=== PATIENT | female | born 1980 | race Caucasian/White ===

== ENCOUNTER 2024-10-13 05:44 | Inpatient (IN) | payer MEDICARE, OTHER ==
[~2024-10-13] VITALS: Ht 167.6 cm; Wt 78.2 kg
[2024-10-13] VITALS (8 sets, daily range): BP systolic 100–105; BP diastolic 44–65; PULSE 61–83; RESP 16–26; TEMP 97.7–98.1; O2SAT 94–100
[2024-10-13 06:09] LABS: SITE, BLOOD GAS LFT RADIAL
[2024-10-13 06:10] LABS: ABG BASE EXCESS -2.2 mmol/L (-2.0-3.0); ABG CARBOXYHEMOGLOBIN 0.4 % (0.5-1.5); ABG METHEMOGLOBIN 0.7 % (0.0-1.5); ABG OXYGEN CONTENT 18.8 mL/dL (15.0-23.0); ABG OXYHEMOGLOBIN 98.6 % (94.0-98.0); ABG PCO2 36 mmHg (32.0-45.0); ABG TOTAL HEMOGLOBIN 12.9 G/dL (12.0-16.0); ALLEN TEST, BLOOD GAS Positive; SOURCE, BLOOD GAS ARTERIAL
[2024-10-13 06:11] LABS: ABG OXYGEN SATURATION 99.7 % (94.0-98.0); INSPIRATORY TIME, BG 0.9 SEC; O2 DEVICE,BLOOD GAS BIPAP (ROOM AIR); SPONTANEOUS VT, BG 954 ml; VENT MODE, BG NIPPV (ROOM AIR)
[2024-10-13 06:19] LABS: COVID AG,FIA SOURCE NASAL SWAB
[2024-10-13 06:37] LABS: INFLUENZA TYPE A NEGATIVE FOR TYPE A (NEGATIVE); INFLUENZA TYPE B NEGATIVE FOR TYPE B (NEGATIVE); SARS-COV2 (COVID) ANTIGEN,FIA Negative (Negative)
[2024-10-13 06:57] LABS: BASOPHILS % (AUTO) 2.1 % (0.0-2.0); EOSINOPHILS % (AUTO) 5.7 % (1.0-6.0); HEMATOCRIT 38.1 % (36-46); LYMPHOCYTES # (AUTO) 2.3 K/uL (1.0-4.8); LYMPHOCYTES % (AUTO) 30.7 % (22.0-44.0); MEAN CORPUSCULAR HEMOGLOBIN 26.6 pg (26.0-34.0); MEAN CORPUSCULAR HGB CONC 31.5 G/dL (31.0-37.0); MEAN CORPUSCULAR VOLUME 84 fL (80-100); MONOCYTES # (AUTO) 0.8 K/uL (0.1-1.0); MONOCYTES % (AUTO) 10.6 % (2.0-9.0); NEUTROPHILS # (AUTO) 3.7 K/uL (1.8-7.7); NEUTROPHILS % (AUTO) 50.9 % (40.0-70.0); PLATELET COUNT (AUTO) 297 K/uL (150-450); RED BLOOD CELL COUNT(AUTO) 4.51 MIL/uL (4.00-5.20); RED CELL DISTRIBUTION WIDTH 17.8 % (11.5-14.5); WHITE BLOOD COUNT (AUTO) 7.3 K/uL (4.5-11.0)
[2024-10-13 07:01] LABS: PROTHROMBIN TIME 9.9 SEC (9.4-11.6)
[2024-10-13] MEDS: LORazepam 2 MG/ML VIAL IVP ONE (07:56)
[2024-10-13 07:57] LABS: ANION GAP 11 mmol/L (8-16); CALCIUM, TOTAL 8.3 mg/dL (8.8-10.5); CARBON DIOXIDE 25 mmol/L (22-29); CHLORIDE 104 mmol/L (98-107); CREATININE 1.33 mg/dL (0.60-1.30); GLOMERULAR FILTR. RATE CALC 43 mL/min (>60); GLUCOSE,RANDOM 54 mg/dL (70-110); POTASSIUM 5.4 mmol/L (3.5-5.1); SODIUM SERUM 140 mmol/L (136-145); UREA NITROGEN, BLOOD 31 mg/dL (7-18)
[2024-10-13 08:02] LABS: ALANINE AMINOTRANSFERASE 44 U/L (12-78); ALBUMIN 3.2 g/dL (3.4-5.0); ALKALINE PHOSPHATASE 95 U/L (46-116); ASPARTATE AMINOTRANSFERASE 31 U/L (15-37); BILIRUBIN,TOTAL 0.3 mg/dL (0.1-1.0); CREATINE KINASE, TOTAL ONLY 62 U/L (26-192); TROPONIN I-HIGH SENSITIVITY 22 ng/L (<51)
[2024-10-13] MEDS: FUROSEMIDE 40 MG/4 ML VIAL IVP ONE (08:15)
[2024-10-13] MEDS: DEXTROSE 50%-WATER 25 GM/50 ML SYRINGE IVP ONE (08:15)
[2024-10-13] MEDS ORDERED: ONDANSETRON HCL 4 MG/2 ML VIAL IVP PRN (09:45)
[2024-10-13] MEDS ORDERED: ALBUTEROL SULFATE 2.5 MG/0.5 ML NEB SOLUTION NEB PRN (09:45)
[2024-10-13 11:44] LABS: APPEARANCE,URINE CLEAR (CLEAR); BILIRUBIN,URINE NEGATIVE (NEGATIVE); COLOR,URINE COLORLESS (YELLOW); GLUCOSE, URINE (UA) 300-500 mg/dL (NEGATIVE); KETONES,URINE NEGATIVE (NEGATIVE); LEUKOCYTE ESTERASE ,URINE NEGATIVE (NEGATIVE); NITRATE,URINE NEGATIVE (NEGATIVE); OCCULT BLOOD,URINE NEGATIVE (NEGATIVE); PH,URINE 6.5 (5.0-8.0); PROTEIN,URINE NEGATIVE (NEGATIVE); SPECIFIC GRAVITIY, URINE 1.006 (1.003-1.030); UROBILINOGEN,URINE <=1.0 mg/dL (<=1.0)
[2024-10-13 11:48] LABS: PH,URINE DRUG SCREEN 6.5 (5.0-8.0)
[2024-10-13 11:57] LABS: BACTERIA,URINE None Seen /HPF (None Seen); RBC,URINE None Seen /HPF (0-2); WBC,URINE None Seen /HPF (0-5)
[2024-10-13 11:58] LABS: ALCOHOL, URINE DRUG SCREEN NEGATIVE (NEGATIVE); AMPHET/METH SCREEN,URINE NEGATIVE (NEGATIVE); BARBITURATE SCREEN, URINE NEGATIVE (NEGATIVE); BENZODIAZEPINES SCREEN,URINE NEGATIVE (NEGATIVE); CANNABINOID SCREEN,URINE NEGATIVE (NEGATIVE); COCAINE SCREEN,URINE NEGATIVE (NEGATIVE); METHADONE SCREEN, URINE NEGATIVE (NEGATIVE); OPIATE SCREEN,URINE NEGATIVE (NEGATIVE); PHENCYCLIDINE SCREEN,URINE NEGATIVE (NEGATIVE)
[2024-10-13] MEDS ORDERED: INSULIN LISPRO 100 UNITS/ML SQ PRN (12:45)
[2024-10-13] MEDS: HEPARIN SODIUM,PORCINE 5,000 UNITS/ML VIAL SQ SCH (16:05)
[2024-10-13 16:56] LABS: GLUCOMETER DEV NAME(LOC) 5S.2D; GLUCOSE,POINT OF CARE 45 MG/DL (70-110)
[2024-10-13] MEDS: DEXTROSE 50%-WATER 25 GM/50 ML SYRINGE IVP PRN (17:13)
[2024-10-13 17:20] LABS: GLUCOMETER DEV NAME(LOC) 5S.2D; GLUCOSE,POINT OF CARE 68 MG/DL (70-110)
[2024-10-13 17:51] LABS: GLUCOMETER DEV NAME(LOC) 5S.2D; GLUCOSE,POINT OF CARE 91 MG/DL (70-110)
[2024-10-13] MEDS: DOCUSATE SODIUM 100 MG CAPSULE PO SCH (20:24)
[2024-10-13] MEDS: ACETAMINOPHEN 325 MG TABLET PO PRN (20:25)
[2024-10-13] MEDS: GABAPENTIN 300 MG CAPSULE PO ONE (22:12)
[2024-10-13] MEDS: IBUPROFEN 400 MG TABLET PO PRN (22:12)
[2024-10-13 22:30] LABS: GLUCOMETER DEV NAME(LOC) 5S.2D; GLUCOSE,POINT OF CARE 88 MG/DL (70-110)
[2024-10-14 04:45] VITALS: BP 101/62; PULSE 71; RESP 18; TEMP 97.8; O2SAT 98
[2024-10-14 05:31] LABS: GLUCOMETER DEV NAME(LOC) 5S.2D; GLUCOSE,POINT OF CARE 96 MG/DL (70-110)
[2024-10-14 07:01] LABS: CALCIUM, TOTAL 8.6 mg/dL (8.8-10.5); CREATININE 1.3 mg/dL (0.60-1.30)
[2024-10-14 07:07] LABS: BASOPHILS % (AUTO) 0.8 % (0.0-2.0); EOSINOPHILS % (AUTO) 7.8 % (1.0-6.0); HEMATOCRIT 36.2 % (36-46); HEMOGLOBIN 11.5 g/dL (12.0-16.0); LYMPHOCYTES % (AUTO) 32.4 % (22.0-44.0); MEAN CORPUSCULAR HEMOGLOBIN 26.4 pg (26.0-34.0); MEAN CORPUSCULAR HGB CONC 31.9 G/dL (31.0-37.0); MEAN CORPUSCULAR VOLUME 83 fL (80-100); MONOCYTES # (AUTO) 0.8 K/uL (0.1-1.0); MONOCYTES % (AUTO) 12.6 % (2.0-9.0); NEUTROPHILS # (AUTO) 2.8 K/uL (1.8-7.7); NEUTROPHILS % (AUTO) 46.4 % (40.0-70.0); PLATELET COUNT (AUTO) 304 K/uL (150-450); RED BLOOD CELL COUNT(AUTO) 4.36 MIL/uL (4.00-5.20); RED CELL DISTRIBUTION WIDTH 17.2 % (11.5-14.5); WHITE BLOOD COUNT (AUTO) 6.1 K/uL (4.5-11.0)
[2024-10-14 08:00] VITALS: BP 96/50; PULSE 76; RESP 18; TEMP 98.1; O2SAT 96
[2024-10-14] MEDS: ASPIRIN 81 MG CHEWABLE TABLET PO SCH (08:06)
[2024-10-14] MEDS: FAMOTIDINE 20 MG TABLET PO SCH (08:06)
[2024-10-14] MEDS: GABAPENTIN 300 MG CAPSULE PO SCH (08:06)
[2024-10-14 08:11] LABS: POTASSIUM 5.2 mmol/L (3.5-5.1)
[2024-10-14] MEDS: FUROSEMIDE 40 MG/4 ML VIAL IVP SCH (08:14)
[2024-10-14 11:31] LABS: GLUCOMETER DEV NAME(LOC) 5S.2D; GLUCOSE,POINT OF CARE 86 MG/DL (70-110)
[2024-10-14] MEDS ORDERED: ASPI-1450 PO (11:50)
[2024-10-14] MEDS ORDERED: FURO40TA6 PO (11:50)
[2024-10-14] MEDS ORDERED: GABA-1181 PO (11:50)
[2024-10-14 11:54] VITALS: BP 122/70; PULSE 76; RESP 18; TEMP 97.8; O2SAT 99
[2024-10-14] MEDS ORDERED: BUME1TAB50 PO (11:57)
[2024-10-14] MEDS: SODIUM POLYSTYRENE SULFONATE 15 GM/60 ML SUSPENSION BOTTLE PO ONE (12:09)
[2024-10-14 16:14] VITALS: BP 121/73; PULSE 80; RESP 19; TEMP 97.8; O2SAT 99
== END 2024-10-14 16:30 | disposition home or self-care (01) | DRG 291 ==
LOC: EMS 05:48 → EDH 10:36 → 5N 12:35
PROVIDERS: ADMIT Internal Medicine; ATTEND Internal Medicine
PROC: 5A09357 Assistance with Respiratory Ventilation, Less than 24 Consecutive Hours, Continuous Positive Airway Pressure (ICD-10-PCS; principal; 2024-10-13)
DX: I50.23 Acute on chronic systolic (congestive) heart failure (principal); J96.21 Acute and chronic respiratory failure with hypoxia; I89.0 Lymphedema, not elsewhere classified; E11.9 Type 2 diabetes mellitus without complications; J45.909 Unspecified asthma, uncomplicated; Z20.822 Contact with and (suspected) exposure to COVID-19; F17.200 Nicotine dependence, unspecified, uncomplicated; F41.9 Anxiety disorder, unspecified; I25.2 Old myocardial infarction; Z71.6 Tobacco abuse counseling; Z79.82 Long term (current) use of aspirin; Z79.899 Other long term (current) drug therapy; Z83.3 Family history of diabetes mellitus; Z88.5 Allergy status to narcotic agent; Z91.148 Patient's other noncompliance with medication regimen for other reason
CPT/HCPCS: 36600; 71045; 80048; 80076; 80307; 81001; 82550; 82805; 82962; 83735; 83880; 84484; 84703; 85025; 85610; 85730; 87804; 93005; 93306; 94660; 99285; J1644; J1940; J2060; 36415-L1; 36415-TC